=== PATIENT | female | born 1960 | race American Indian/Alaskan Native ===

== ENCOUNTER 2017-05-31 09:10 | Outpatient (CLI) | payer OTHER ==
--- NOTE | 2017-05-31 15:22 | Mammography Report ---
BILATERAL DIGITAL SCREENING MAMMOGRAM with CAD: 05/31/17 09:10:00 CLINICAL: Routine screening. COMPARISON:The 05/18/16 FINDINGS: The breasts are almost entirely fatty.Stable low density left circumscribed masses. Bilateral benign calcifications. No new mass, architectural distortion or suspicious calcifications. IMPRESSION: No mammographic evidence of malignancy. BI-RADS CATEGORY: 2 -- Benign RECOMMENDATION: Routine mammographic screening in one year. COMMENT: Patient follow-up letters are generated by our [employer] application.
== END 2017-05-31 09:11 | disposition home or self-care (01) ==
LOC: SPVWC 09:10
PROVIDERS: ATTEND Family Medicine
DX: Z12.31 Encounter for screening mammogram for malignant neoplasm of breast (principal)
CPT/HCPCS: 77067; G0202

== ENCOUNTER 2019-06-19 08:17 | Outpatient (CLI) | payer OTHER ==
--- NOTE | 2019-06-19 12:02 | Mammography Report ---
BILATERAL DIGITAL SCREENING MAMMOGRAM WITH CAD INDICATION: Routine screening mammography. TECHNIQUE: Digital bilateral 2D mammography was obtained in the craniocaudal and mediolateral obliq ue projections. This examination was interpreted with the benefit of Computer-Aided Detection analysi s. COMPARISON: 06/06/2018, 05/31/2017, 05/18/2016. FINDINGS: Breast Density: The breasts are almost entirely fatty. No suspicious mass, microcalcifications, or architectural distortion. Stable left medial breast focal asymmetries and benign appearing calcifications bilaterally. Long-term stability would support a corey ign etiology. IMPRESSION: No evidence of breast malignancy. Recommend routine screening mammogram in one year. BI-RADS Category 2: Benign. No mammographic evidence of malignancy. Recommend routine screening ma mmography in one year. A "normal" or negative report should not discourage follow up or biopsy of a clinically significant f inding. A written summary of these findings will be mailed to the patient. The patient will be entered into a mammography reporting system which will generate a reminder letter for the patient's next appointmen t at the appropriate interval. The [employer] recommends yearly mammograms starting at age 40 and continuing as l wilbur as a woman is in good health. Breast MRI is recommended for women with an approximate 20-25% or greater lifetime risk of breast cancer, including women with a strong family history of breast or ova letty cancer or who have been treated for Hodgkin's disease. Signer Name: Olegario Banegas MD Signed: 06/19/2019 11:57 AM Workstation Name: [id number]
== END 2019-06-19 08:18 | disposition home or self-care (01) ==
LOC: SPVWC 08:17
PROVIDERS: ATTEND Family Medicine
DX: Z12.31 Encounter for screening mammogram for malignant neoplasm of breast (principal)
CPT/HCPCS: 77067

== ENCOUNTER 2020-06-20 07:49 | Outpatient (CLI) | payer OTHER ==
--- NOTE | 2020-06-20 10:40 | Mammography Report ---
DIGITAL SCREENING MAMMOGRAM WITH TOMOSYNTHESIS WITH CAD, 06/20/2020 INDICATION: Routine Screening Mammography. SCREENING MAMMO TECHNIQUE: Digital bilateral 2D and 3D mammography with tomosynthesis was obtained in the craniocau zeenat and mediolateral oblique projections. Computer-Aided Detection (CAD) analysis was used for inter pretation of this study. COMPARISON: 06/19/2019. FINDINGS: Breast Density: There are scattered areas of fibroglandular density. There is no evidence of dominant mass, suspicious calcifications or architectural distortion in eithe r breast. Stable, benign-appearing nodularity bilaterally IMPRESSION: Follow up recommendation: Routine yearly BI-RADS Category 2: Benign. A "normal" or negative report should not discourage follow up or biopsy of a clinically significant f inding. A written summary of these findings will be mailed to the patient. The patient will be entered into a mammography reporting system which will generate a reminder letter for the patient's next appointmen t at the appropriate interval. The [employer] recommends yearly mammograms starting at age 40 and continuing as l wilbur as a woman is in good health. Breast MRI is recommended for women with an approximate 20-25% or greater lifetime risk of breast cancer, including women with a strong family history of breast or ova letty cancer or who have been treated for Hodgkin's disease. Signer Name: Ozzie Waters MD Signed: 06/20/2020 10:35 AM Workstation Name: [id number]
== END 2020-06-20 07:50 | disposition home or self-care (01) ==
LOC: SPVWC 07:49
PROVIDERS: ATTEND Family Medicine
DX: Z12.31 Encounter for screening mammogram for malignant neoplasm of breast (principal)
CPT/HCPCS: 77067

== ENCOUNTER 2020-11-04 08:07 | Day surgery (SDC) | payer OTHER ==
[~2020-11-04 08:07] MED LIST: SODIUM CHLORIDE 0.9% 1000 ML 1,000 ML IV SCH
--- NOTE | 2020-11-04 09:17 | Anesthesia Day of Surgery ---
Anesthesia Day of Surgery - Day of Surgery Patient Examined: Yes Patient H&P Reviewed: Yes Patient is NPO: Yes
[2020-11-04] MEDS ORDERED: fentaNYL 100 MCG/2 ML INJ ONE (09:20)
[2020-11-04] MEDS ORDERED: ONDANSETRON 4 MG/2 ML INJ ONE (09:20)
[2020-11-04] MEDS ORDERED: propofoL 200 MG/20 ML VIAL IV ONE ×2 (09:20→09:31)
--- NOTE | 2020-11-04 09:21 | Anesthesia Consultation ---
Anesthesia Consult and Med Hx Date of service: 11/04/20 - Airway Anesthetic Teeth Evaluation: Good ROM Head & Neck: Adequate Mental/Hyoid Distance: Adequate Mallampati Class: Class II Intubation Access Assessment: Good - Pre-Operative Health Status ASA Pre-Surgery Classification: ASA2 Proposed Anesthetic Plan: MAC - Pulmonary Hx Smoking: No Hx Asthma: No COPD: No Hx Pneumonia: Yes Hx Sleep Apnea: No - Cardiovascular System Hx Hypertension: Yes Hx Heart Attack/AMI: No Hx Pacemaker: No Hx Internal Defibrillator: No - Central Nervous System Hx Seizures: No - Gastrointestinal Hx Ulcer: No Hx Gastroesophageal Reflux Disease: Yes - Endocrine Hx Hyperthyroidism: Yes - Hematic Hx Sickle Cell Disease: No
--- NOTE | 2020-11-04 09:23 | History and Physical Report ---
ADMIT DATE: 11/04/2020 HISTORY OF PRESENT ILLNESS: A 60-year-old slightly obese female with an underlying history of diabetes mellitus type 2, hypertension, hypothyroidism. The patient lately has been having problems with dysphagia and is to have an EGD with dilation done. She is also to have a colonoscopy done. Her last colonoscopy was 7-8 years back. ALLERGIES: SHE HAS A HISTORY OF ALLERGY TO MORPHINE. SOCIAL HISTORY: Denies history of smoking or alcohol use. No cardiac issues. She has had flu shots including the COVID vaccine. PHYSICAL EXAMINATION: VITAL SIGNS: Temperature is 98.2, blood pressure 111/84, pulse is 85, height is 5 feet 6 inches, weight is 173 pounds. NECK: Shows no JVD. LUNGS: Clear to auscultation. CARDIOVASCULAR: Normal. ABDOMEN: Soft. Bowel sounds present. NEUROLOGIC: The patient is otherwise alert and oriented. ASSESSMENT: Colon polyp screening, dysphagia, diabetes mellitus type 2, hypertension, hypothyroidism. PLAN: To treat the patient with PPI. EGD to be done with esophageal dilation at [facility] along with colonoscopy. Suprep to be used as the patient's prep. TID: [id number] RECEIPT: [id number] FELIZ/LAYLA
--- NOTE | 2020-11-04 10:05 | Procedure Note ---
Date of procedure: 11/04/20 Pre-op diagnosis: Dysphagia/GERD/Colon Polyps Screeing Post-op diagnosis: other (No Colon Polyps noted/Few,small,Left Colon Diverticulu/Mild to Moderate Internal Hemorrhoids/ Mild to Moderate Erosive Esophagitis/ Mild Benign Esophageal Stenosis (s/p Balloon dilation)/ Gastritis and Gastric Erosion and Duoenal Erosion) Procedure: EGD with Biopsy and s/p Balloon Dilation (20 mm Balloon) and Colonoscopy [place] [facility] [place]: JESSIE TORRES Estimated blood loss: minimal Pathology: list Specimen disposition: to lab Condition: stable Disposition: same day (Treat with PPI and Reglan. Avoid aspirin and NSAID for 5 days, otherwise resume home medication and follow up in 1 to 2 weeks ([phone]).)
[2020-11-04 10:18] VITALS: BP 131/65
--- NOTE | 2020-11-04 10:39 | Operative Report ---
DATE OF SURGERY: 11/04/2020 EGD WITH BIOPSY AND BALLOON DILATION INDICATIONS: This is a 60-year-old obese -Italian female with an underlying history of diabetes mellitus and hypertension. Lately, he has been having problems with dysphagia. EGD was done to assess for the problem. DESCRIPTION OF PROCEDURE: After getting informed consent with MAC anesthesia, instrument was passed through the hypopharynx into the esophagus, which showed some mild benign esophageal stenosis and mild to moderate erosive esophagitis. Biopsy was done from the distal esophagus to assess for the severity of the erosive esophagitis. The stomach showed gastric erosion, gastritis. Biopsy was done from the gastric antrum, gastric body, and angularis incisura. The pylorus is patent. The duodenum in the first and the second portion, the first portion showed duodenal erosions, second portion showed normal mucosa. No biopsies were done from the duodenum. The esophagus was dilated at the end of the procedure with a 20 mm esophageal balloon that was maintained for a minute. ASSESSMENT: Dysphagia, mild, benign, esophageal stenosis, mild to moderate, erosive esophagitis, gastric erosion, gastritis, duodenal erosion. PLAN: To treat the patient with proton pump inhibitor as well as Reglan. Have the patient avoid aspirin and aspirin-related products for the next few days and follow up in the office in 1-2 weeks' time. A colonoscopy is to be done as well as part of colon polyp screening. TID: [id number] RECEIPT: [id number] FELIZ/LULU
--- NOTE | 2020-11-04 11:01 | Operative Report ---
DATE OF SURGERY: 11/04/2020 PROCEDURE: Colonoscopy. A 60-year-old obese -N[place]ian female with an underlying history of diabetes mellitus and hypertension, who had an EGD done prior to the colonoscopy. EGD showed mild benign esophageal stenosis for which she underwent esophageal balloon dilation with a 20 mm balloon as well as mild to moderate erosive esophagitis, gastric erosion, gastritis and duodenal erosion. Colonoscopy was done after getting informed consent with MAC anesthesia. Initial rectal examination was unremarkable. The instrument was passed through the rectum onto the cecum, which was identified by the ileocecal valve and the appendiceal orifice. The cecum was visualized, in the retroverted view, no additional pathology was noted. Cecum, ascending colon, transverse colon showed normal mucosa. There were a few scattered diverticula noted in the left colon. The rectum showed some mild to moderate internal hemorrhoids on the retroverted view. There was no bleeding associated with the procedure. No complications associated with the procedure. ASSESSMENT: Colon polyp screening, no colon polyps noted. Few diverticula involving the left colon, mild to moderate internal hemorrhoids. The patient will be encouraged to take fiber supplements. She will also be placed on PPI and Reglan because of the EGD findings of gastritis, gastric erosion and duodenitis and also because of some problems with swallowing, the patient will be asked to avoid aspirin and aspirin-related products for the next few days since the biopsies were done during the EGD and otherwise, resume home medication. Follow up in the office in 1-2 weeks' time. Procedure was done in the GI lab with assistance of the GI lab team, which included the GI nurse Cindy with the assistance of the lon Butt and also with assistance of anesthesia. TID: [id number] RECEIPT: [id number] KJ/LULU
--- NOTE | 2020-11-04 14:54 | Post Anesthesia Evaluation ---
- Post Anesthesia Evaluation Patient Participated: Yes Airway Patent: Yes Stable Respiratory Function: Yes Nausea/Vomiting: No Temp > 96.8F: Yes Pain Manageable: Yes Adequeate Hydration: Yes Anesthesia Complications: No Block Receding Appropriately: Not Applicable Patient on Ventilator: No
== END 2020-11-04 16:13 | disposition home or self-care (01) ==
LOC: GIO 08:07
DX: Z12.11 Encounter for screening for malignant neoplasm of colon (principal); R13.10 Dysphagia, unspecified; K29.50 Unspecified chronic gastritis without bleeding; K22.2 Esophageal obstruction; K64.8 Other hemorrhoids; E04.9 Nontoxic goiter, unspecified; K57.30 Diverticulosis of large intestine without perforation or abscess without bleeding; K21.00 Gastro-esophageal reflux disease with esophagitis, without bleeding; K31.89 Other diseases of stomach and duodenum; I10 Essential (primary) hypertension; F41.9 Anxiety disorder, unspecified; E03.9 Hypothyroidism, unspecified; Z88.5 Allergy status to narcotic agent; Z79.84 Long term (current) use of oral hypoglycemic drugs; Z79.899 Other long term (current) drug therapy; Z87.01 Personal history of pneumonia (recurrent); Z90.49 Acquired absence of other specified parts of digestive tract; Z87.440 Personal history of urinary (tract) infections; Z98.890 Other specified postprocedural states
CPT/HCPCS: 43239; 43249; 45378; 82962; 88305; 88342; C1726; J2405; J2704; J3010; J7030

== ENCOUNTER 2021-06-21 15:15 | Outpatient (CLI) | payer OTHER | END 2021-06-21 15:16 | disposition home or self-care (01) | LOC: SPVWC 15:15 | PROVIDERS: ATTEND Family Medicine | DX: Z12.31 Encounter for screening mammogram for malignant neoplasm of breast (principal) | CPT/HCPCS: 77067 ==